=== PATIENT | male | born 1940 | race Two or more races ===

== ENCOUNTER 2025-01-09 10:14 | Emergency (ER) | payer MEDICARE, OTHER ==
[~2025-01-09] VITALS: Ht 152.4 cm; Wt 68.0 kg
[~2025-01-09 10:14] MED LIST: ASCO-352 PO; ASPI-992 PO; BENA40TA8 PO; CALC500T52 PO; DEXL30CA3 PO; DONE10TA44 PO; HYDR25TA4 PO; MULT-439 PO; OXYC5CAP18 PO; POTA20TA83 PO; SIMV-49 PO
[2025-01-09 11:34] LABS: BASOPHILS % (AUTO) 0.3 % (0.0-2.0); EOSINOPHILS # (AUTO) 0.1 K/uL (0.0-0.7); EOSINOPHILS % (AUTO) 1.3 % (0.0-6.0); HEMATOCRIT 41 % (39-51); HEMOGLOBIN 13.7 g/dL (13.5-17.5); LYMPHOCYTES # (AUTO) 1.3 K/uL (0.8-4.8); LYMPHOCYTES % (AUTO) 24.2 % (20.0-44.0); MEAN CORPUSCULAR HEMOGLOBIN 35 PG (26.0-33.0); MEAN CORPUSCULAR HGB CONC 33 g/dl (31.0-36.0); MEAN CORPUSCULAR VOLUME 104 fL (80-96); MONOCYTES # (AUTO) 0.8 K/uL (0.1-1.30); NEUTROPHILS # (AUTO) 3.3 K/uL (1.8-8.9); NEUTROPHILS % (AUTO) 60.2 % (43.0-81.0); PLATELET COUNT (AUTO) 197 K/uL (150-450); RED BLOOD CELL COUNT(AUTO) 3.93 MIL/uL (4.5-6.0); RED CELL DISTRIBUTION WIDTH 13.8 % (11.5-15.0); WHITE BLOOD COUNT (AUTO) 5.5 K/uL (4.3-11.0)
[2025-01-09 11:44] LABS: CALCIUM, SERUM 9.6 mg/dL (8.5-10.1); CARBON DIOXIDE 35 mmol/L (21-32); CHLORIDE 99 mmol/L (98-107); GLUCOSE 103 mg/dL (74-106); POTASSIUM 4.9 mmol/L (3.5-5.1); SODIUM SERUM 139 mmol/L (136-145); UREA NITROGEN, BLOOD 17 mg/dL (7-18)
[2025-01-09] MEDS ORDERED: LATA5DRO RIGHTEYE (11:44)
[2025-01-09] MEDS ORDERED: PANT40TA49 PO (11:44)
[2025-01-09] MEDS ORDERED: ALLO300T2 PO (11:44)
[2025-01-09] MEDS ORDERED: MEMA5TAB42 PO (11:44)
[2025-01-09] MEDS ORDERED: VITAMIN B-1 PO (11:44)
[2025-01-09] MEDS ORDERED: OMEG1CAP13 PO (11:44)
[2025-01-09] MEDS ORDERED: SIMV80TA90 PO (11:44)
[2025-01-09] MEDS ORDERED: POTA-10 PO (11:44)
[2025-01-09] MEDS ORDERED: CARB15DR LEFTEYE (11:44)
[2025-01-09] MEDS ORDERED: DORZ10DR11 RIGHTEYE (11:44)
[2025-01-09] MEDS ORDERED: VITAMIN D PO (11:44)
[2025-01-09 11:50] LABS: LACTIC ACID 0.8 mmol/L (0.4-2.0)
[2025-01-09 11:51] LABS: ALANINE AMINOTRANSFERASE 14 U/L (12-78); ALBUMIN 3.6 g/dL (3.4-5.0); ALKALINE PHOSPHATASE 45 U/L (46-116); ASPARTATE AMINOTRANSFERASE 49 U/L (15-37); BILIRUBIN,DIRECT 0.1 mg/dL (0.0-0.2); BILIRUBIN,TOTAL 0.7 mg/dL (0.2-1.0); PARTIAL THROMBOPLASTIN TIME 29.7 SEC (24.3-34.3); PROTHROMBIN TIME 10.6 SECS (9.2-11.1); TOTAL PROTEIN, SERUM 7.8 g/dL (6.4-8.2)
[2025-01-09 13:12] LABS: APPEARANCE,URINE CLEAR (CLEAR); BILIRUBIN,URINE NEGATIVE (NEGATIVE); BLOOD, URINE NEGATIVE Ery/uL (NEGATIVE); COLOR,URINE YELLOW (YELLOW); KETONES,URINE NEGATIVE (NEGATIVE); LEUKOCYTE ESTERASE ,URINE NEGATIVE (NEGATIVE); NITRITE, URINE NEGATIVE (NEGATIVE); PH,URINE 6.5 (5.0-8.0); PROTEIN,URINE NEGATIVE (NEGATIVE); UGLUCOSE NEGATIVE (NEGATIVE); UROBILINOGEN,URINE 0.2 EU/dL (0.2)
[2025-01-09] MEDS ORDERED: dexaMETHasone SOD PHOSPHATE 4 MG/ML VIAL ONE (13:16)
[2025-01-09] MEDS: LEVETIRACETAM (500MG) 500 MG in IV NS 0.9% 100 ML IV SCH (13:32)
[2025-01-09] MEDS: dexaMETHasone SOD PHOSPHATE 4 MG/ML VIAL IV ONE (13:32)
[2025-01-09 15:36] VITALS: BP 132/78; TEMP 98.8; O2SAT 99
== END 2025-01-09 15:37 | disposition left against medical advice (07) ==
LOC: ER 10:21
DX: R29.6 Repeated falls (principal); R93.0 Abnormal findings on diagnostic imaging of skull and head, not elsewhere classified; I10 Essential (primary) hypertension; E78.5 Hyperlipidemia, unspecified; Z79.899 Other long term (current) drug therapy; Z90.49 Acquired absence of other specified parts of digestive tract; Z96.653 Presence of artificial knee joint, bilateral
CPT/HCPCS: 99285; 72125; 96365; 71045; 96375; 93005; 70450; 85025; 80048; 87040 ×2; 83605; 80076; 81003; 36415; 84484; 85730; J1100; J7030; J7040; J1953; A4223 ×2